=== PATIENT | male | born 1995 | race Caucasian/White ===

== ENCOUNTER 2019-01-07 02:11 | Emergency (ER) | payer OTHER ==
[2019-01-07] MEDS ORDERED: PROPARACAINE 0.5% OPHTH DROPS 15 ML BTL BOTH EYES STA (02:16)
[2019-01-07] MEDS ORDERED: ERYTHROMYCIN 5 MG/GM OPHTH OINT 3.5 GM TUBE BOTH EYES STA (02:16)
[2019-01-07 02:17] VITALS: BP 141/80; PULSE 78; RESP 18; TEMP 97.9
[2019-01-07] MEDS ORDERED: traMADol 50 MG STARTER PACK 3 TAB BTL PO STA (02:47)
--- NOTE | 2019-01-07 02:50 | ED ---
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 Patient reports that This accident occur while he was at work. 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 Patient reports that he had bladder/yesterday and started having pain today. Patient reports that he has no visual changes. Does not wear glasses or contacts at this time. - Related Data Previous Rx's Medication Instructions Recorded Artificial Tears-Hypromellose 1 drops BOTH EYES TID #1 bottle 01/07/19 [Artificial Tear Drops] Erythromycin Ophth Oint [Romycin 1 applic BOTH EYES QID #1 tube 01/07/19 Ophth Oint] Ibuprofen [Motrin] 600 mg PO Q6HR PRN #20 tab 01/07/19 Allergies Allergy/AdvReac Type Severity Reaction Status Date / Time cefaclor [From Ceclor] Allergy Unknown Verified 01/07/19 02:17 Review of Systems ROS Statement: Those systems with pertinent positive or pertinent negative responses have been documented in the HPI. ROS Other: All systems not noted in ROS Statement are negative. Past Medical History Past Medical History: No Reported History History of Any Multi-Drug Resistant Organisms: None Reported Past Surgical History: No Surgical Hx Reported Past Psychological History: No Psychological Hx Reported Smoking Status: Never smoker Past Alcohol Use History: None Reported Past Drug Use History: None Reported General Exam - General Exam Comments Initial Comments: 23-year-old male. Limitations: no limitations General appearance: alert, in no apparent distress Head exam: Present: atraumatic, normocephalic, normal inspection Eye exam: Present: normal appearance, PERRL, EOMI, other (Patient has mildly erythematous conjunctiva. Fluorescein eye exam is performedin between ulceration or retained foreign body. Diffuse uptake through the exposed cornea from the welder metal fab burn.). Absent: scleral icterus, conjunctival injection, periorbital swelling ENT exam: Present: normal exam, mucous membranes moist Neck exam: Present: normal inspection. Absent: tenderness, meningismus, lymphadenopathy Respiratory exam: Present: normal lung sounds bilaterally. Absent: respiratory distress, wheezes, rales, rhonchi, stridor Cardiovascular Exam: Present: regular rate, normal rhythm, normal heart sounds. Absent: systolic murmur, diastolic murmur, rubs, gallop, clicks GI/Abdominal exam: Present: soft, normal bowel sounds. Absent: distended, tenderness, guarding, rebound, rigid Extremities exam: Present: normal inspection, full ROM, normal capillary refill. Absent: tenderness, pedal edema, joint swelling, calf tenderness Back exam: Present: normal inspection Neurological exam: Present: alert, oriented X3, CN II-XII intact Psychiatric exam: Present: normal affect, normal mood Skin exam: Present: warm, dry, intact, normal color. Absent: rash Course Vital Signs 01/07/19 02:15 Temperature 97.9 F Pulse Rate 78 Respiratory 18 Rate Blood Pressure 141/80 O2 Sat by Pulse 100 Oximetry Medical Decision Making - Medical Decision Making 23-year-old male presents emergency department today for complaints of welder metal fab burn. 4 scene eye exam was performed shows evidence of diffuse uptake or bilateral corneas.Ulceration or foreign bodies retained. Patient was advised to use Zithromax and iodine for any concern for infection do develop. Discussed that Patient should be taking anti-inflammatory medicine for pain. Discussed referral for ophthalmology. All questions were answered return parameters were discussed. He was not discharged with the proparacaine drops. Disposition Clinical Impression: Welders' keratitis Disposition: HOME SELF-CARE Condition: Good Instructions (If sedation given, give patient instructions): Corneal Flash [place] (ED) Additional Instructions: Please use medication as discussed. Please follow up with opthalmology doctor if symptoms have not improved over the next two days. Please return to the emergency room if your symptoms increase or worsen or for any other concerns. Prescriptions: Artificial Tears-Hypromellose [Artificial Tear Drops] 1 drops BOTH EYES TID #1 bottle Ibuprofen [Motrin] 600 mg PO Q6HR PRN #20 tab PRN Reason: Pain Erythromycin Ophth Oint [Romycin Ophth Oint] 1 applic BOTH EYES QID #1 tube Is patient prescribed a controlled substance at d/c from ED?: No Referrals: Josh Riddle DO [Primary Care Provider] - 1-2 days Caio Shepard MD [STAFF PHYSICIAN] - 1-2 days Time of Disposition: 02:47
== END 2019-01-07 03:02 | disposition home or self-care (01) ==
LOC: EC 02:11
DX: H16.133 Photokeratitis, bilateral (principal); Z88.1 Allergy status to other antibiotic agents; W89.8XXA Exposure to other man-made visible and ultraviolet light, initial encounter
CPT/HCPCS: 99283